=== PATIENT | male | born 1975 | race African-American/Black ===

== ENCOUNTER → 2022-05-17 | Outpatient (CLI) | payer OTHER ==
--- NOTE | 2022-05-17 19:45 | DIREP ---
PROCEDURE:CHEST 2 VIEWS COMPARISON:None. INDICATIONS:Z00.00 HISTORY AND PHYSICAL EVALUATION FINDINGS: LUNGS/PLEURA:No significant pulmonary parenchymal abnormalities. No effusions. VASCULATURE:Normal. Unremarkable pulmonary vasculature. CARDIAC:Normal. No cardiac silhouette abnormality or cardiomegaly. MEDIASTINUM:Normal. No visible mass or adenopathy. BONES:Normal. No fracture or visible bony lesion. OTHER:Negative. CONCLUSION:No acute findings.. Dictated by: Hipolito Vergara MD on 05/17/2022 at 07:42 PM
--- NOTE | 2022-05-17 19:47 | DIREP ---
PROCEDURE:XRAY SINUSES PARANASAL<3 VWS COMPARISON:None. INDICATIONS:Z00.00 HISTORY AND PHYSICAL EVALUATION TECHNIQUE: Four views of the sinuses were performed. FINDINGS: MAXILLARY:There is complete opacification of the left maxillary sinus. The right maxillary sinus is clear. ETHMOID:Normal. No mucosal thickening or fluid level. FRONTAL:Normal. No mucosal thickening or fluid level. SPHENOID:Normal. No mucosal thickening or fluid level. OTHER:Negative. CONCLUSION:Findings of complete opacification of the left maxillary sinus. The other paranasal sinuses appear clear. Dictated by: Kirby Mahoney M.D. on 05/17/2022 at 07:44 PM
--- NOTE | 2022-05-17 21:41 | DIREP ---
PROCEDURE:XRAY SPINE LUMBAR 2-3 VWS COMPARISON:None. INDICATIONS:Z00.00 HISTORY AND PHYSICAL EVALUATION TECHNIQUE:AP, lateral, and coned down lateral views of the lumbar spine are provided. FINDINGS: ALIGNMENT:Normal. VERTEBRAE:Bilateral pars defects at L5. Normal vertebral body height. Mild anterior osteophyte formation. DISK SPACES:Mild loss disc height at L5-S1. SPONDYLOLISTHESIS:8 mm anterolisthesis of L5 on S1. SACROILIAC JOINTS:Normal. OTHER:Normal. CONCLUSION:Bilateral pars defects at L5, with anterolisthesis of L5 on S1. Mild degenerative changes. Dictated by: Hailey Aguila M.D. on 05/17/2022 at 09:38 PM
== END | disposition home or self-care (01) ==
LOC: RAD 14:29
PROVIDERS: ATTEND Nurse Practitioner
DX: M47.817 Spondylosis without myelopathy or radiculopathy, lumbosacral region (principal); J32.0 Chronic maxillary sinusitis; M25.78 Osteophyte, vertebrae
CPT/HCPCS: 70220; 71046; 72100